=== PATIENT | female | born 1995 | race Caucasian/White ===

== ENCOUNTER 2017-03-08 00:23 | Inpatient (IN) | payer MEDICAID ==
[~2017-03-08] VITALS: Ht 160 cm; Wt 71.4 kg
[2017-03-08] MEDS ORDERED: OXYTOCIN 30U/ 0.9% NaCL 500ML 500 ML IV ONE (02:51)
[2017-03-08] MEDS ORDERED: OXYTOCIN 30U/ 0.9% NaCL 500ML 500 ML IV PRN ×2 (02:51→08:59)
[2017-03-08] MEDS ORDERED: OXYTOCIN 30U/ 0.9% NaCL 500ML 500 ML ONE (02:55)
[2017-03-08] MEDS ORDERED: NEWBORN KIT ONE ×2 (02:55→11:58)
[2017-03-08] MEDS ORDERED: FENTANYL PF 100 MCG/2ML IVPush PRN (03:00)
[2017-03-08] MEDS ORDERED: FENTANYL PF 100 MCG/2ML IV PRN (03:00)
[2017-03-08] MEDS ORDERED: CALCIUM CARBONATE 500 MG TAB.CHEW PO PRN ×3 (03:00→15:00)
[2017-03-08] MEDS ORDERED: TERBUTALINE 1 MG/ML, 1ML IVPush PRN (03:00)
[2017-03-08] MEDS ORDERED: ONDANSETRON 2MG/ML, 2ML IVPush PRN (03:00)
[2017-03-08 03:13] LABS: HEMATOCRIT 37.7 % (34.6-47.8); HEMOGLOBIN 12.5 g/dL (11.7-16.4); WHITE BLOOD COUNT 9.7 x10^3/uL (4.5-13.2)
[2017-03-08] MEDS: LACTATED RINGERS 1,000 ML IV SCH ×4 (04:37→13:21)
[2017-03-08] MEDS ORDERED: FENTANYL/BUPIV./NS/PF 250 ML EPIDCONT ONE ×2 (04:52→05:00)
[2017-03-08] MEDS ORDERED: LIDOCAINE/PF 1.5%-EPI 1:200K, 30ML ONE ×2 (04:53→05:00)
[2017-03-08] MEDS ORDERED: BUPIVACAINE 0.25% ONE (05:00)
[2017-03-08] MEDS ORDERED: FENTANYL/BUPIV./NS/PF 250 ML EPIDCONT SCH (05:21)
[2017-03-08] MEDS ORDERED: LACTATED RINGERS 1,000 ML IVBOLUS PRN (05:30)
[2017-03-08] MEDS: D5%-LACTATED RINGERS 1,000 ML IV SCH ×2 (09:27→10:51)
[2017-03-08] MEDS ORDERED: BUPIVACAINE/PF 0.25% ONE (11:29)
[2017-03-08] MEDS: OXYTOCIN 30U/ 0.9% NaCL 500ML 500 ML IV SCH ×2 (13:11→23:11)
[2017-03-08] MEDS ORDERED: IBUPROFEN 600 MG TABLET PO PRN (13:30)
[2017-03-08] MEDS ORDERED: MAGNESIUM HYDROXIDE 8%, 30ML UDC PO PRN ×2 (13:30→15:00)
[2017-03-08] MEDS ORDERED: DOCUSATE 100 MG CAPSULE PO PRN ×2 (13:30→15:00)
[2017-03-08] MEDS ORDERED: MEASLES,MUMPS&RUBELLA VACC/PF 0.5 ML SQ PRN (13:30)
[2017-03-08] MEDS ORDERED: MISOPROSTOL 200 MCG TABLET PR PRN (13:30)
[2017-03-08] MEDS ORDERED: ONDANSETRON 2MG/ML, 2ML IV PRN ×2 (13:30→15:00)
[2017-03-08] MEDS ORDERED: ACETAMINOPHEN 325 MG TABLET PO PRN ×4 (13:30→15:00)
[2017-03-08] MEDS ORDERED: DIPH,PERTUSS(ACELL),TET VAC/PF NC IM-VACC PRN (13:30)
[2017-03-08] MEDS ORDERED: RHOGAM FROM BLOOD BANK 1 NOTE EA IM/IV ONE (13:30)
[2017-03-08] MEDS ORDERED: OXYcodone/APAP 5/325MG TABLET PO PRN ×3 (13:30→15:00)
[2017-03-08] MEDS ORDERED: MEASLES,MUMPS&RUBELLA VACC/PF 0.5 ML SQ-VACC PRN (15:00)
[2017-03-08] MEDS: IBUPROFEN 600 MG TABLET PO PRN ×2 (15:51→22:02)
[2017-03-08 16:10] VITALS: BP 104/59
[2017-03-08 19:45] VITALS: BP 109/75
[2017-03-08 21:00] LABS: HEMATOCRIT 34.7 % (34.6-47.8); HEMOGLOBIN 11.5 g/dL (11.7-16.4)
[2017-03-08] MEDS: OXYcodone/APAP 5/325MG TABLET PO PRN (23:06)
[2017-03-09] VITALS: BP 109/66
[2017-03-09] MEDS: IBUPROFEN 600 MG TABLET PO PRN ×2 (04:09→09:28)
[2017-03-09 04:15] VITALS: BP 108/66
[2017-03-09] MEDS: OXYcodone/APAP 5/325MG TABLET PO PRN ×2 (05:05→15:00)
[2017-03-09 08:25] VITALS: BP 113/74
[2017-03-09] MEDS ORDERED: PRENATAL VIT/IRON/FA 1 EACH TABLET PO SCH ×2 (09:00)
[2017-03-09] MEDS: OXYTOCIN 30U/ 0.9% NaCL 500ML 500 ML IV SCH (09:11)
[2017-03-09] MEDS ORDERED: OXYC-302 PO (12:14)
[2017-03-09] MEDS ORDERED: IBUP-1222 PO (12:14)
== END 2017-03-09 13:25 | disposition home or self-care (01) | DRG 775 ==
LOC: LDOP 00:23 → LDIP 02:55 → 2NW 15:26
PROVIDERS: ADMIT Obstetrics & Gynecology; ATTEND Obstetrics & Gynecology
PROC: 10E0XZZ Delivery of Products of Conception, External Approach (ICD-10-PCS; principal; 2017-03-08)
PROC: 0KQM0ZZ Repair Perineum Muscle, Open Approach (ICD-10-PCS; 2017-03-08)
DX: O69.1XX0 Labor and delivery complicated by cord around neck, with compression, not applicable or unspecified (principal); O70.1 Second degree perineal laceration during delivery; Z3A.40 40 weeks gestation of pregnancy; Z37.0 Single live birth; Z28.29 Immunization not carried out because of patient decision for other reason
CPT/HCPCS: 36415; 82803; 85025; 86850; 86900; J3490; J2590; J3010; J7120; J7121

== ENCOUNTER 2017-03-13 02:11 | Emergency (ER) | payer MEDICAID ==
[~2017-03-13] VITALS: Ht 160 cm; Wt 65.3 kg
[~2017-03-13 02:11] MED LIST: IBUP-1222 PO; OXYC-302 PO
[2017-03-13 03:05] LABS: BLOOD UREA NITROGEN 7 mg/dL (7-18)
[2017-03-13 03:08] LABS: HEMATOCRIT 33.3 % (34.6-47.8); HEMOGLOBIN 10.9 g/dL (11.7-16.4); WHITE BLOOD COUNT 7.4 x10^3/uL (4.5-13.2)
[2017-03-13 06:24] VITALS: BP 122/82
== END 2017-03-13 06:21 | disposition home or self-care (01) ==
LOC: ED 02:52
DX: O72.2 Delayed and secondary postpartum hemorrhage (principal); Z87.891 Personal history of nicotine dependence
CPT/HCPCS: 36415; 76856; 80048; 82040; 84702; 85025; 99285